=== PATIENT | female | born 1970 | race Two or more races ===

== ENCOUNTER 2020-09-15 06:22 | Emergency (ER) | payer OTHER ==
[~2020-09-15] VITALS: Ht 157.5 cm; Wt 77.1 kg
[2020-09-15] MEDS ORDERED: CLINDAMYCIN HC300 MG (06:46)
[2020-09-15] MEDS ORDERED: KETO10TA2 PO (17:23)
[2020-09-15] MEDS ORDERED: DOXYCYCLINE HY100 MG PO (17:23)
== END 2020-09-15 17:36 | disposition home or self-care (01) ==
LOC: ER 06:22
DX: N75.8 Other diseases of Bartholin's gland (principal); Z03.818 Encounter for observation for suspected exposure to other biological agents ruled out

== ENCOUNTER 2022-07-05 12:09 | Emergency (ER) | payer OTHER ==
[~2022-07-05] VITALS: Ht 154.9 cm; Wt 83.0 kg
[~2022-07-05 12:09] MED LIST: CLINDAMYCIN HC300 MG; DOXYCYCLINE HY100 MG PO; KETO10TA2 PO
== END 2022-07-05 16:57 | disposition home or self-care (01) ==
LOC: ER 12:09
DX: B34.9 Viral infection, unspecified (principal); Z88.0 Allergy status to penicillin; Z91.013 Allergy to seafood

== ENCOUNTER 2025-06-01 06:00 | Day surgery (SDC) | payer OTHER ==
[2025-05-27 08:30] VITALS: BP 130/85
[2025-05-27 09:05] LABS: URINE APPEARANCE Clear; URINE BILIRRUBIN Negative (NEGATIVE); URINE BLOOD Small; URINE COLOR Yellow; URINE GLUCOSE Negative (NEGATIVE); URINE KETONE Negative (NEGATIVE); URINE LEUKOCYTE Negative; URINE NITRATE Negative; URINE PROTEIN Negative (NEGATIVE); URINE UROBILINOGEN 1.0 E.U./dl
[2025-05-27 09:07] LABS: URINE BACTERIA 124.7 uL (0.0-1933); URINE EPITHELIAL CELLS 4.4 uL (0.0-38.8); URINE RBC 58.6 uL (0.0-20.8); URINE WBC 4.9 uL (0.0-23.2)
[2025-05-27 09:12] LABS: BASO % 0.9 % (0.1-1.2); EOS # 0.12 (0.04-0.54); EOS % 2.6 % (0.7-7.0); LYMPH # 1.77 (1.18-3.74); LYMPH % 38.0 % (19.3-53.1); MEAN PLATELET VOLUME 11.10 fl (9.4-12.4); MONO # 0.34 (0.24-0.82); MONO % 7.3 % (4.7-12.5); NEUT # 2.38 (1.56-6.13); NEUT % 51.0 % (34.0-71.1); RED CELL DISTRIBUTION WIDTH 12.9 % (11.6-14.4)
[2025-05-27 09:19] LABS: URINE CAST 0.00 uL (0.0-1.40)
[2025-05-27 09:34] LABS: INR 1.0
[2025-05-27 09:37] LABS: ALT/SGPT 21.0 U/L (12-78); AST/SGOT 18.0 U/L (15-37); BILIRUBIN TOTAL 0.43 mg/dL (0.3-1.2); BUN CREA RATIO 19.0 (7.0-25.0); CREATININE SERUM 0.62 mg/dL (0.55-1.02); GFR 99.93; GLOBULINA 2.7 G/DL (2.4-3.5); GLUCOSE FASTING 82.0 mg/dL (65-100); OSMOLALITY SERUM 289.0 MOSM/KG (275-295)
[~2025-06-01] VITALS: Ht 157.5 cm; Wt 75.3 kg
[~2025-06-01 06:00] MED LIST changes: +SIMVASTATIN5 MG
[2025-06-01] MEDS ORDERED: CLINDAMYCIN PHOSPHATE 150 MG/ML (900mg) IV ONE (09:00)
[2025-06-01] MEDS ORDERED: CHLORHEXIDINE GLUCONATE 120 ML BOTTLE TOP ONE (09:00)
== END 2025-06-01 11:40 | disposition home or self-care (01) ==
LOC: CIR.AMB 06:00
PROVIDERS: ATTEND Orthopaedic Surgery Hand Surgery
DX: D21.12 Benign neoplasm of connective and other soft tissue of left upper limb, including shoulder (principal); R22.32 Localized swelling, mass and lump, left upper limb; Z88.0 Allergy status to penicillin; Z91.013 Allergy to seafood